=== PATIENT | male | born 1950 | race Caucasian/White ===

== ENCOUNTER 2018-10-12 14:25 | Emergency (ER) | payer MEDICARE ==
[~2018-10-12] VITALS: Ht 167.6 cm; Wt 60.3 kg
--- NOTE | 2018-10-12 14:56 | ED Upper Extremity ---
General Chief Complaint: Upper Extremity Stated Complaint: FALL; RT SHOULDER INJ History of Present Illness Date Seen by Provider: Oct 12, 2018 Time Seen by Provider: 14:43 This is a 67-year-old man with a history of hypertension here after a mechanical fall yesterday onto the right shoulder. He has mild constant sore nonradiating pain over the right clavicle. No weakness or numbness or tingling. No headache or neck pain, no chest pain or shortness of breath. No other symptoms. Allergies and Home Medications Patient Home Medication List Home Medication List Reviewed: Yes Review of Systems Constitutional: no symptoms reported EENTM: no symptoms reported Respiratory: no symptoms reported Cardiovascular: no symptoms reported Gastrointestinal: no symptoms reported Genitourinary: no symptoms reported Musculoskeletal: see HPI Skin: no symptoms reported Psychiatric/Neurological: No Symptoms Reported Past [id number] Hx Past Med/Social Hx: Reviewed Nursing Past Med/Soc Hx Patient Social History Alcohol Use: Occasionally Uses Recreational Drug Use: No Smoking Status: Current Everyday Smoker Type Used: Cigarettes 2nd Hand Smoke Exposure: Yes Recent Hopitalizations: No Physical Abuse: No Sexual Abuse: No Mistreated: No Fear: No Seasonal Allergies Seasonal Allergies: No Past Medical History Surgeries: Yes (knee meniscus repair) Respiratory: No Cardiac: Yes High Cholesterol, Hypertension Neurological: No Genitourinary: No Gastrointestinal: No Musculoskeletal: Yes (closed fx of 2nd metatarsal bone; lisfranc's sprain) HEENT: No Cancer: No Psychosocial: No Blood Disorders: No Physical Exam Vital Signs Vital Signs - First Documented 10/12/18 14:46 Temp 98.6 Pulse 86 Resp 18 B/P (MAP) 140/105 (117) Pulse Ox 96 O2 Delivery Room Air Capillary Refill : Height, Weight, BMI Height: '" Weight: lbs. oz. kg; BMI Method: General Appearance: no apparent distress HEENT: normal ENT inspection Neck: full range of motion, supple Cardiovascular: normal peripheral pulses, regular rate, rhythm Respiratory: chest non-tender, lungs clear Gastrointestinal: non tender, soft Back: no vertebral tenderness Shoulder: deformity (there is tenderness, deformity over the right clavicle. No tenderness is over the humerus or scapula), limited ROM (patient is able to fully abduct, flex and extend both arms but there is pain beyond 90 of abduction in the right arm) Elbow/Forearm: non-tender Wrist: Yes non-tender Hand: non-tender Neurologic/Tendon: other (radial, median, ulnar nerve function intact in the affected extremity) Neurologic/Psychiatric: alert, normal mood/affect; No abnormal gait Skin: warm/dry Progress/Results/Core Measures Results/Orders My Orders Orders - ROBERT FARMER DO Clavicle Right (10/12/18 14:52) Vital Signs/I&O 10/12/18 14:46 Temp 98.6 Pulse 86 Resp 18 B/P (MAP) 140/105 (117) Pulse Ox 96 O2 Delivery Room Air Progress Progress Note : Progress Note It appears patient has a comminuted right clavicular fracture. He is neurovascularly intact and appears to be relatively comfortable. He has been provided a sling, I will provide a prescription for several tablets of [place] for pain as needed. I spoke with Dr. Caruso from orthopedics who said that patient could be discharged home with a sling and can call the office for a follow-up appointment, he is likely an operative candidate. Departure Impression Primary Impression: Closed right clavicular fracture Qualified Codes: S42.021A - Displaced fracture of shaft of right clavicle, initial encounter for closed fracture Disposition: HOME, SELF-CARE Condition: Stable Departure-Patient Inst. Referrals: RALEIGH TREVINO MD SELF,W[facility] MOSHER (PCP/Family) Primary Care Physician Patient Instructions: How to Use a Shoulder Sling, Clavicle Fracture Scripts Hydrocodone/Acetaminophen ([place] 5-325 Tablet) 1 Each Tablet 1 TAB PO Q4-6HR for Pain MDD 10 TABS for 5 Days, #12 TAB Prov: ROBERT FARMER DO 10/12/18 ROBERT FARMER DO Oct 12, 2018 14:56
--- NOTE | 2018-10-12 15:21 | Diagnostic Imaging Report ---
INDICATION: Fall with right collarbone pain. EXAMINATION: AP and angle views of the right clavicle are obtained. FINDINGS: There is comminuted midshaft fracture of the right clavicle with inferior displacement of the lateral fragment relative to the proximal fragment. There are underlying degenerative findings of the AC joint. IMPRESSION: Comminuted right clavicle fracture as described above. Dictated by: Dictated on workstation # [id number]
[2018-10-12] MEDS ORDERED: HYDR-4226 PO (15:27)
[2018-10-12 15:53] VITALS: BP 130/80
== END 2018-10-12 15:56 | disposition home or self-care (01) ==
LOC: ER FS 14:27
DX: S42.021A Displaced fracture of shaft of right clavicle, initial encounter for closed fracture (principal); I10 Essential (primary) hypertension; E78.00 Pure hypercholesterolemia, unspecified; F17.210 Nicotine dependence, cigarettes, uncomplicated; Z98.890 Other specified postprocedural states; W19.XXXA Unspecified fall, initial encounter
CPT/HCPCS: 73000

== ENCOUNTER → 2022-11-16 | Outpatient (CLI) | payer MEDICARE ==
[~2022-11-16] MED LIST: HYDR-4226 PO; RT-ALBUTEROL SULF 2.5 MG/3 ML PRE-MIX VIAL INH ONE
== END ==
LOC: RT 12:28
PROVIDERS: ATTEND Family Medicine
DX: R06.02 Shortness of breath (principal)
CPT/HCPCS: 94060; 94726; 94729